=== PATIENT | male | born 1945 | race Caucasian/White ===

== ENCOUNTER 2018-07-20 14:20 | Inpatient (IN) | payer MEDICARE ==
[2018-07-20 15:41] LABS: #Eosinphils 0.1 thou/uL (0.0-0.7); #Lymphocytes 1.1 thou/uL (1.20-3.40); #Monocytes 0.6 thou/uL (0.11-0.59); #Neutrophils 11.1 thou/uL (1.40-6.50); %Basophils 0.3 % (0.0-1.0); %Eosinophils 0.6 % (0.0-10.0); %Lymphocytes 8.5 % (21.0-51.0); %Monocytes 4.7 % (0.0-10.0); %Neutrophils 85.9 % (42.0-75.0); Hemoglobin 14.1 g/dL (14.0-18.0); Mean Corpuscular Hemoglobin 30.1 pg (27.0-31.0); Mean Corpuscular Volume 88.6 fL (78.0-98.0); Mean Platelet Volume 7.4 fL (7.4-10.4); Platelet Count 317 thou/uL (130-400); RBC Distribution Width 11.6 % (11.5-14.5); Red Blood Cell (RBC) Count 4.68 mill/uL (4.70-6.10)
--- NOTE | 2018-07-20 15:51 | RAD ---
ONE VIEW CHEST: 07/20/18 HISTORY: Fall. Pain. COMPARISON: 08/08/10. FINDINGS: There are sternotomy wires. There is atherosclerosis of the aorta. Heart is enlarged. Pulmonary vesse ls and hilum are normal. Costophrenic angles are clear. No masses or consolidation. No pneumothorax or osseous abnormalities. IMPRESSION: 1. Atherosclerosis and elongation of the aorta. 2. No acute cardiopulmonary process. POS: [facility]
--- NOTE | 2018-07-20 15:56 | RAD ---
AP PELVIS RADIOGRAPH: DATE: 07/20/2018. HISTORY: Injury after fall. FINDINGS: There is a mildly impacted subcapital right femoral neck fracture. No definite additional fracture i s seen. There are mild degenerative changes of the pubic symphysis with degenerative changes seen in the lumbar spine. Multiple punctate metallic densities are seen overlying the lower abdomen and pel vis probably related to metallic foreign bodies. Phleboliths overlie the pelvis. IMPRESSION: Mildly impacted right subcapital femoral neck fracture. POS: [facility]
[2018-07-20 15:58] LABS: ALT (SGPT) 11 U/L (8-55); AST (SGOT) 15 U/L (5-34); Albumin 3.7 g/dL (3.4-4.8); Alkaline Phosphatase 112 U/L (40-150); Anion Gap 15 mmol/L (10-20); BUN (Urea Nitrogen) 13 mg/dL (8.4-25.7); Bilirubin, Total 0.6 mg/dL (0.2-1.2); Calc. Creatinine Clearance 0 mL/min (70-130); Calcium 8.8 mg/dL (7.8-10.44); Carbon Dioxide 21 mmol/L (23-31); Chloride 104 mmol/L (98-107); Estimated GFR-MDRD 71; Globulin 3.8 g/dL (2.4-3.5); Glucose 101 mg/dL (83-110); Potassium 3.4 mmol/L (3.5-5.1); Protein, Total 7.5 g/dL (5.8-8.1); Sodium 137 mmol/L (136-145)
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
[2018-07-20] MEDS ORDERED: traMADol HCl 50 MG TAB PO PRN (16:15)
[2018-07-20] MEDS ORDERED: Acetaminophen 325 MG TAB PO SCH ×2 (16:15→18:00)
[2018-07-20] MEDS ORDERED: Dextrose 5% in Water 1,000 ML IV PRN ×2 (16:18→17:02)
[2018-07-20] MEDS ORDERED: Morphine 4 MG/ML VIAL SLOW IVP PRN ×2 (16:18→17:02)
[2018-07-20] MEDS ORDERED: Ondansetron PF 4 MG/2 ML Vial IVP PRN ×2 (16:18→17:02)
[2018-07-20] MEDS ORDERED: hydrALAZINE 20 MG/ML VIAL SLOW IVP PRN ×2 (16:18→17:02)
[2018-07-20] MEDS ORDERED: Dextrose 50% Abboject 50 ML SYRINGE SLOW IVP PRN ×2 (16:18→17:02)
[2018-07-20] MEDS ORDERED: Ondansetron ODT 4 MG TAB PO PRN ×2 (16:18→17:02)
[2018-07-20 17:27] LABS: Magnesium 1.9 mg/dL (1.6-2.6); Phosphorus 3.4 mg/dL (2.3-4.7)
[2018-07-20] MEDS: Ibuprofen 800 MG TAB PO SCH ×2 (17:27→23:37)
[2018-07-20] MEDS: traMADol HCl 50 MG TAB PO SCH ×2 (17:28→22:04)
[2018-07-20] MEDS: Sodium Chloride 0.9% 1,000 ML IV SCH (17:35)
[2018-07-20] MEDS: Potassium Chloride 20 MEQ/100 ML PREMIX BAG IVPB SCH ×2 (17:39→20:22)
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
[2018-07-20 18:35] VITALS: BMI 29.5
[2018-07-20] MEDS: Senokot S 8.6-50 MG TAB PO SCH (20:20)
[2018-07-20] MEDS: Famotidine 20 MG TAB PO SCH (20:21)
[2018-07-20] MEDS ORDERED: Famotidine 20 MG TAB PO SCH (21:00)
[2018-07-20] MEDS: Acetaminophen 1,000 MG in Premix Bag 1 BAG IVPB SCH (23:44)
[2018-07-21] MEDS ORDERED: Sodium Chloride 0.9% 1,000 ML IV SCH (00:01)
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
[2018-07-21] MEDS: Ibuprofen 800 MG TAB PO SCH ×2 (05:28→16:14)
[2018-07-21] MEDS: traMADol HCl 50 MG TAB PO SCH ×4 (05:28→21:22)
[2018-07-21 05:55] LABS: #Eosinphils 0.4 thou/uL (0.0-0.7); #Lymphocytes 1.7 thou/uL (1.20-3.40); #Monocytes 0.5 thou/uL (0.11-0.59); #Neutrophils 4.3 thou/uL (1.40-6.50); %Basophils 0.1 % (0.0-1.0); %Eosinophils 6.1 % (0.0-10.0); %Lymphocytes 24.6 % (21.0-51.0); %Monocytes 6.8 % (0.0-10.0); %Neutrophils 62.4 % (42.0-75.0); Hemoglobin 12.9 g/dL (14.0-18.0); Mean Corpuscular HGB CONC 33.6 g/dL (32.0-36.0); Mean Corpuscular Hemoglobin 29.5 pg (27.0-31.0); Mean Platelet Volume 7.5 fL (7.4-10.4); Platelet Count 254 thou/uL (130-400); RBC Distribution Width 11.7 % (11.5-14.5); Red Blood Cell (RBC) Count 4.37 mill/uL (4.70-6.10); White Blood Cell (WBC) Count 6.9 thou/uL (4.8-10.8)
[2018-07-21 06:10] LABS: ALT (SGPT) 9 U/L (8-55); AST (SGOT) 11 U/L (5-34); Albumin 3.3 g/dL (3.4-4.8); Alkaline Phosphatase 98 U/L (40-150); Anion Gap 10 mmol/L (10-20); BUN (Urea Nitrogen) 13 mg/dL (8.4-25.7); Bilirubin, Total 0.6 mg/dL (0.2-1.2); Calc. Creatinine Clearance 102 mL/min (70-130); Calcium 8.4 mg/dL (7.8-10.44); Carbon Dioxide 25 mmol/L (23-31); Chloride 106 mmol/L (98-107); Estimated GFR-MDRD 71; Globulin 3.3 g/dL (2.4-3.5); Glucose 98 mg/dL (83-110); Potassium 3.7 mmol/L (3.5-5.1); Protein, Total 6.6 g/dL (5.8-8.1); Sodium 137 mmol/L (136-145)
[2018-07-21] MEDS: Acetaminophen 1,000 MG in Premix Bag 1 BAG IVPB SCH ×3 (06:21→18:14)
[2018-07-21] MEDS: Sodium Chloride 0.9% 1,000 ML IV SCH ×2 (06:21→11:13)
[2018-07-21] MEDS ORDERED: Fentanyl 100 MCG/2 ML VIAL ONE (07:13)
[2018-07-21] MEDS ORDERED: CEFAZOLIN 2 GM/50 ML BAG ONE (07:35)
[2018-07-21] MEDS ORDERED: CEFAZOLIN/Water 2 GM/20 ML SYRINGE SLOW IVP SCH ×2 (08:00→09:00)
[2018-07-21] MEDS ORDERED: CEFAZOLIN 2 GM/50 ML-DEXTROSE 2 GM in Premix Bag 1 BAG IVPB SCH (08:00)
[2018-07-21] MEDS: Famotidine 20 MG TAB PO SCH ×2 (08:08→21:22)
[2018-07-21] MEDS: Polyethylene Glycol 3350 17 GM Packet PO SCH (08:09)
[2018-07-21] MEDS: Senokot S 8.6-50 MG TAB PO SCH ×2 (08:09→21:21)
[2018-07-21] MEDS ORDERED: Promethazine HCl 25 MG/ML VIAL IM PRN (09:15)
[2018-07-21] MEDS ORDERED: Promethazine HCl 25 MG/ML VIAL SLOW IVP PRN (09:15)
[2018-07-21] MEDS ORDERED: Ondansetron HCl/PF 4 MG/2 ML Vial IVP PRN (09:15)
[2018-07-21] MEDS ORDERED: ePHEDrine/0.9% NaCl/PF SYRINGE 50 mg/10 ml ONE (09:20)
[2018-07-21] MEDS ORDERED: PHENYLEPHRINE-NS 100 MCG/ML 10 ML SYRINGE ONE (09:20)
[2018-07-21] MEDS ORDERED: Ondansetron PF 4 MG/2 ML Vial ONE (09:20)
[2018-07-21] MEDS ORDERED: PROPOFOL 200 MG/20 ML VIAL ONE (09:20)
[2018-07-21] MEDS ORDERED: Glycopyrrolate 0.2 MG/ML 5 ML SYRINGE ONE (09:20)
[2018-07-21] MEDS ORDERED: Lidocaine 1% PF 5 ML VIAL ONE (09:20)
--- NOTE | 2018-07-21 10:36 | RAD ---
RIGHT HIP 2 VIEWS: Date: 07/21/18 HISTORY: Hip pinning. COMPARISON: Radiograph prior day. FINDINGS: Satisfactory postoperative appearance of three partially threaded cannulated screws of the right femo ral neck. IMPRESSION: Satisfactory postoperative appearance. POS: [facility]
[2018-07-21] MEDS: CEFAZOLIN 2 GM/50 ML-DEXTROSE 2 GM in Premix Bag 1 BAG IVPB SCH ×2 (10:55→16:16)
--- NOTE | 2018-07-21 13:46 | PRG ---
DATE OF SERVICE: 07/21/2018 SUBJECTIVE: Mr. Sosa is a 73-year-old man who is status post percutaneous screw fixation of the left femoral fracture. He reports adequate pain control this morning returning from surgery. He is awake and alert. Jean catheter is in place with adequate urinary output. OBJECTIVE: VITAL SIGNS: His vital signs includes blood pressure 121/79, pulse 72, respiratory rate 20, temperature 98.8 degrees Fahrenheit, and oxygen saturation 95% on 2 L by nasal cannula oxygen. HEART: Reveals regular rate and rhythm. LUNGS: Clear to auscultation bilaterally. Breathing regular, nonlabored. ABDOMEN: Soft, nontender, and nondistended. LABORATORY STUDIES: Today includes a CBC with 6900 white blood cells and hemoglobin and hematocrit 12.9 and 38.4 respectively. Platelet count is 254,000. Metabolic profile; sodium 137, potassium is 3.7, chloride is 106, bicarb 25, BUN 13, creatinine is 1.03, and glucose 98. IMPRESSION: Postop day #zero status post screw fixation left hip fracture. PLAN: Initiate physical and occupational therapy. I will increase activity as the patient tolerates therapy. We will advance diet as tolerated. We will initiate discharge planning likely to rehab or fpc facility once the patient is hemodynamically stable. Job ID: [id number]
[2018-07-21] MEDS ORDERED: Bisacodyl 10 MG SUPP PR PRN (14:24)
[2018-07-21] MEDS ORDERED: Tamsulosin HCl 0.4 MG CAP PO SCH (14:30)
--- NOTE | 2018-07-21 15:11 | OP ---
DATE OF PROCEDURE: PROCEDURE PERFORMED: Right femoral neck percutaneous screw fixation. PREOPERATIVE DIAGNOSIS: Right femoral neck fracture. POSTOPERATIVE DIAGNOSIS: Right femoral neck fracture. COMPLICATIONS: None. ESTIMATED BLOOD LOSS: Minimal. ANESTHESIA: General. IMPLANTS: Synthes 7.3 mm screws x3. INDICATIONS: Mr. Sosa is a 73-year-old male who fell yesterday. He fractured his femoral neck. He was indicated for percutaneous screw fixation to restore stability to the hip and allow early mobilization. Risks have been reviewed, which do include avascular necrosis, nonunion, hardware prominence or pain, and others. DESCRIPTION OF OPERATION: Mr. Sosa was identified in the preoperative holding area. His correct extremity was marked. He was carried to the operating room. He was positioned supine. General anesthesia was induced. A multidisciplinary time-out was performed. The right lower extremity was prepped and draped in sterile fashion. We began the procedure with intraoperative evaluation of the fracture under x-ray. We placed the patient on the fracture table. The right lower extremity was prepped and draped in sterile fashion. We made a small incision over the lateral side and dissected down to the bony level. We then inserted three guidewires in an inverted triangle pattern. These were placed under fluoroscopic guidance. Once we were satisfied with the guidewire position, we measured the guidewires. We then overdrilled the guidewires and then placed three 7.3 mm cannulated screws, traversing the femoral neck fracture. At this point, we took final x-ray images. We then thoroughly irrigated and closed the wounds in layers. A sterile dressing was applied. The patient was taken to the recovery room in good condition without complication at this point. Job ID: [id number]
[2018-07-21] MEDS: Tamsulosin HCl 0.4 MG CAP PO SCH (21:25)
[2018-07-22] MEDS: traMADol HCl 50 MG TAB PO SCH ×4 (03:22→22:26)
[2018-07-22] MEDS: Ibuprofen 800 MG TAB PO SCH ×3 (03:23→16:19)
[2018-07-22 05:13] LABS: #Eosinphils 0.6 thou/uL (0.0-0.7); #Lymphocytes 1.4 thou/uL (1.20-3.40); #Monocytes 0.5 thou/uL (0.11-0.59); %Basophils 0.1 % (0.0-1.0); %Eosinophils 7.9 % (0.0-10.0); %Lymphocytes 18.9 % (21.0-51.0); %Monocytes 6.6 % (0.0-10.0); %Neutrophils 66.5 % (42.0-75.0); Mean Corpuscular HGB CONC 33.4 g/dL (32.0-36.0); Mean Corpuscular Hemoglobin 29.9 pg (27.0-31.0); Mean Corpuscular Volume 89.6 fL (78.0-98.0); Platelet Count 221 thou/uL (130-400); RBC Distribution Width 11.9 % (11.5-14.5); Red Blood Cell (RBC) Count 4.69 mill/uL (4.70-6.10); White Blood Cell (WBC) Count 7.5 thou/uL (4.8-10.8)
[2018-07-22 05:25] LABS: ALT (SGPT) 9 U/L (8-55); AST (SGOT) 13 U/L (5-34); Albumin 3.3 g/dL (3.4-4.8); Alkaline Phosphatase 97 U/L (40-150); Anion Gap 13 mmol/L (10-20); BUN (Urea Nitrogen) 14 mg/dL (8.4-25.7); Bilirubin, Total 0.5 mg/dL (0.2-1.2); Calc. Creatinine Clearance 89 mL/min (70-130); Calcium 8.4 mg/dL (7.8-10.44); Carbon Dioxide 22 mmol/L (23-31); Chloride 107 mmol/L (98-107); Estimated GFR-MDRD 61; Globulin 3.6 g/dL (2.4-3.5); Glucose 92 mg/dL (83-110); Potassium 4.4 mmol/L (3.5-5.1); Protein, Total 6.9 g/dL (5.8-8.1); Sodium 138 mmol/L (136-145)
[2018-07-22] MEDS: Acetaminophen 1,000 MG in Premix Bag 1 BAG IVPB SCH ×4 (05:53→17:37)
[2018-07-22] MEDS ORDERED: Tamsulosin HCl 0.4 MG CAP PO SCH (09:00)
[2018-07-22] MEDS: Furosemide 20 MG TAB PO SCH (09:02)
[2018-07-22] MEDS: Famotidine 20 MG TAB PO SCH ×2 (09:02→20:40)
[2018-07-22] MEDS: Polyethylene Glycol 3350 17 GM Packet PO SCH (09:02)
[2018-07-22] MEDS: Senokot S 8.6-50 MG TAB PO SCH ×2 (09:02→20:39)
--- NOTE | 2018-07-22 14:59 | PRG ---
DATE OF SERVICE: SUBJECTIVE: This is a 73-year-old gentleman, status post percutaneous screw fixation, right femoral neck fracture. The patient's pain has been controlled well. He had no overnight events other than he is still due to void after Jean was removed at 6 o'clock this morning. He is awake and alert. No distress. Voices no concerns. Pain is well controlled. The patient's appetite is good. Has not had a bowel movement. OBJECTIVE: VITAL SIGNS: Temperature 97.6, pulse 93, respirations 20, SpO2 98% on 2 L, blood pressure 136/85. GENERAL: The patient is awake, alert, in no distress, sitting up in the chair. HEENT: Normocephalic, atraumatic. RESPIRATORY: Equal chest rise, nonlabored, no distress. HEART: Regular rate. ABDOMEN: Soft, nontender. MUSCULOSKELETAL: Moves all extremities. The patient with right BKA. LABORATORY DATA: WBC 7.5, RBC 4.69, hemoglobin 14.0, hematocrit 42. Sodium 138 , potassium 4.4, chloride 107, BUN 14, creatinine 1.18, estimated GFR 61, glucose 92, calcium 8.4, albumin 3.3, globulin 3.6. ASSESSMENT: 1. Postop day #1, status post percutaneous screw fixation, right femoral neck fracture. 2. Acute traumatic pain. PLAN: 1. Continue physical therapy and occupational therapy. Encourage the patient to increase his activity as tolerated. Continue regular diet. He will likely go to a rehab or snf facility. Case Management to help with discharge planning. 2. We will increase the patient's bowel regimen as he is due to void and hasn't had a bowel movement. We will continue to monitor urine output. This patient was evaluated with Dr. Valero. Job ID: [id number] [facility]
[2018-07-22] MEDS ORDERED: Bisacodyl 10 MG SUPP PR SCH (17:30)
[2018-07-22] MEDS: Tamsulosin HCl 0.4 MG CAP PO SCH (20:40)
[2018-07-22] MEDS: Bisacodyl 10 MG SUPP PR SCH (22:27)
[2018-07-23] MEDS: Ibuprofen 800 MG TAB PO SCH ×2 (00:21→04:10)
[2018-07-23] MEDS: traMADol HCl 50 MG TAB PO SCH ×2 (04:09→10:57)
[2018-07-23] MEDS: Bisacodyl 10 MG SUPP PR SCH ×2 (07:28→08:33)
[2018-07-23] MEDS: Furosemide 20 MG TAB PO SCH (08:32)
[2018-07-23] MEDS: Polyethylene Glycol 3350 17 GM Packet PO SCH (08:32)
[2018-07-23] MEDS: Famotidine 20 MG TAB PO SCH (08:32)
[2018-07-23] MEDS: Senokot S 8.6-50 MG TAB PO SCH (08:32)
[2018-07-23] MEDS ORDERED: Enoxaparin Sodium 40 MG/0.4 ML SYRINGE SC SCH (09:00)
[2018-07-23 15:51] VITALS: BP 143/94; TEMP 97.7
--- NOTE | 2018-07-23 17:36 | PRG ---
DATE OF SERVICE: 07/23/2018 This is a trauma evaluation. SUBJECTIVE: Adrian Sosa is a 73-year-old male patient, who suffered a fall and fracture, status post ORIF of his left hip. He has a right BKA prosthesis. Currently, he has no complaints. At the time of this encounter, he has been seen by [facility], working out his discharge planning, recommending rehab. The patient is agreeable. OBJECTIVE: VITAL SIGNS: Temperature 97.7 degrees, heart rate 100, respiratory rate 20, and blood pressure 143/94. LUNGS: Clear to auscultation. CARDIAC: Regular rhythm without murmur or gallop. ABDOMEN: Soft, nontender. LABORATORY DATA: White count 7, hemoglobin 14. Basic metabolic profile normal. ASSESSMENT: Open reduction and internal fixation, left hip. PLAN: Transfer to rehab to instruct safe transfers and help his balance, he had a known stroke many years ago affecting his balance and is also compromised by his right BKA status with a prosthesis. The patient is agreeable and will transfer to rehab whenever he is approved and accepted. Job ID: [id number]
--- NOTE | 2018-07-24 00:11 | DIS ---
DATE OF ADMISSION: 07/20/2018 DATE OF DISCHARGE: 07/23/2018 PRIMARY DIAGNOSES: Ground level fall, status post right femur fracture with open reduction and internal fixation. SECONDARY DIAGNOSES: 1. Hypertension. 2. Cerebrovascular accident post coronary artery bypass graft. 3. Chronic left foot pain, status post injury. DISCHARGE MEDICATIONS: 1. Dulcolax suppository. 2. Lasix 20 mg p.o. daily. 3. Ibuprofen 800 mg q.8 hours. 4. Lactulose 30 g p.o. b.i.d. 5. MiraLAX 17 g daily. 6. Senokot 2 tablets p.o. b.i.d. 7. Flomax 0.4 mg p.o. at bedtime. 8. Tramadol 50 mg p.o. q.6 hours for pain. HISTORY OF PRESENT ILLNESS: This is a 73-year-old gentleman that is postoperative day #2 ORIF right femur fracture. The patient had a ground level fall when he was at the vet with his dog and his dog accidentally knocked him down. There was no loss of consciousness. The patient underwent repair on 07/21/2018 of the right femur. The patient has done well overnight other than having urinary retention. The patient reports that his pain is well under control. The patient had to be in and out cathed twice during his hospital stay and eventually placed a Jean catheter as the patient has had a history of urinary retention. The patient was evaluated on the day of discharge with Dr. Rayo and he was deemed stable for discharge to inpatient rehab. The patient's vitals were stable at the day of discharge, and his exam was unremarkable including cardiopulmonary and GI exam. The patient is deemed stable for inpatient rehab for continued physical therapy and occupational therapy. DISPOSITION: Stable. DISCHARGE INSTRUCTIONS: 1. Location: Inpatient rehab. 2. Diet: Regular diet. 3. Activity: Hip precautions. Weightbearing as tolerated. FOLLOWUP: 1. Follow up with Dr. Ojeda in 2 weeks, call for appointment. 2. Follow up with Dr. Valero as needed. Job ID: [id number]
== END 2018-07-23 17:00 | DRG 482 ==
LOC: ERS 14:20 → SURG A 15:15
PROVIDERS: ADMIT Surgery; ATTEND Surgery
PROC: 0QH634Z Insertion of Internal Fixation Device into Right Upper Femur, Percutaneous Approach (ICD-10-PCS; principal; 2018-07-20)
DX: S72.011A Unspecified intracapsular fracture of right femur, initial encounter for closed fracture (principal); I10 Essential (primary) hypertension; I25.10 Atherosclerotic heart disease of native coronary artery without angina pectoris; E87.6 Hypokalemia; I69.398 Other sequelae of cerebral infarction; W18.31XA Fall on same level due to stepping on an object, initial encounter; Z89.511 Acquired absence of right leg below knee; Z90.89 Acquired absence of other organs; Z98.890 Other specified postprocedural states; Z95.1 Presence of aortocoronary bypass graft
CPT/HCPCS: 36415; 71045; 72170; 76000; 80053; 83735; 84100; 85025; 86850; 86900; 86901; 93005; C1713; C1769; J0131; J1650; J2001; J2405; J2704; J3010; J3480; Q0162

== ENCOUNTER 2020-10-09 13:13 | Emergency (ER) | payer MEDICARE ==
[2020-10-09 16:17] LABS: #Eosinphils 0.3 thou/uL (0.0-0.7); #Lymphocytes 2.5 thou/uL (1.20-3.40); #Monocytes 0.7 thou/uL (0.11-0.59); #Neutrophils 3.8 thou/uL (1.40-6.50); %Basophils 0.3 % (0.0-1.0); %Eosinophils 4.5 % (0.0-10.0); %Lymphocytes 33.9 % (21.0-51.0); %Neutrophils 52.3 % (42.0-75.0); Hemoglobin 14.2 g/dL (14.0-18.0); Mean Corpuscular HGB CONC 34.4 g/dL (32.0-36.0); Mean Corpuscular Hemoglobin 30.7 pg (27.0-31.0); Mean Corpuscular Volume 89.1 fL (78.0-98.0); Mean Platelet Volume 8.5 fL (7.4-10.4); Platelet Count 183 thou/uL (130-400); RBC Distribution Width 12.3 % (11.5-14.5); Red Blood Cell (RBC) Count 4.64 mill/uL (4.70-6.10); White Blood Cell (WBC) Count 7.2 thou/uL (4.8-10.8)
[2020-10-09 16:38] LABS: ALT (SGPT) 11 U/L (8-55); AST (SGOT) 15 U/L (5-34); Albumin 3.6 g/dL (3.4-4.8); Alkaline Phosphatase 123 U/L (40-110); Anion Gap 16 mmol/L (10-20); BUN (Urea Nitrogen) 15 mg/dL (8.4-25.7); Bilirubin, Total 0.4 mg/dL (0.2-1.2); Calc. Creatinine Clearance 0 mL/min (70-130); Calcium 8.4 mg/dL (7.8-10.44); Carbon Dioxide 19 mmol/L (23-31); Chloride 107 mmol/L (98-107); Globulin 3.6 g/dL (2.4-3.5); Glucose 112 mg/dL (83-110); Potassium 3.6 mmol/L (3.5-5.1); Protein, Total 7.2 g/dL (5.8-8.1); Sodium 138 mmol/L (136-145)
[2020-10-09 17:18] LABS: PTT 33.5 sec (22.9-36.1); Prothrombin Time 13.6 sec (12.0-14.7)
== END 2020-10-09 18:00 | disposition home or self-care (01) ==
LOC: ERS 13:13
DX: M79.89 Other specified soft tissue disorders (principal); I82.442 Acute embolism and thrombosis of left tibial vein; I10 Essential (primary) hypertension; I25.10 Atherosclerotic heart disease of native coronary artery without angina pectoris
CPT/HCPCS: 36415; 80053; 85025; 85610; 85730; 86140

== ENCOUNTER 2021-05-19 10:47 | Outpatient (CLI) | payer MEDICARE | END 2021-05-19 10:48 | disposition home or self-care (01) | LOC: ULT 10:47 | PROVIDERS: ATTEND Family Medicine | DX: I82.432 Acute embolism and thrombosis of left popliteal vein (principal) ==